=== PATIENT | male | born 1975 | race African-American/Black ===

== ENCOUNTER 2017-02-08 03:45 | Emergency (ER) | payer OTHER ==
[~2017-02-08] VITALS: Ht 172.7 cm; Wt 95.3 kg
[~2017-02-08 03:45] MED LIST: NOHOMEMEDS
[2017-02-08 05:15] VITALS: BP 154/119
[2017-02-08 12:52] LABS: CHLAMYDIA TRACHOMATIS POSITIVE; NEISSERIA GONORRHOEAE NEGATIVE
== END 2017-02-08 05:17 | disposition home or self-care (01) ==
LOC: EXP 03:45 → EME 03:45 → EXP 05:17
DX: N34.2 Other urethritis (principal); F17.200 Nicotine dependence, unspecified, uncomplicated
CPT/HCPCS: 87491; 87591; 99281; 99283; J0696

== ENCOUNTER 2017-12-21 05:11 | Emergency (ER) | payer OTHER ==
[~2017-12-21] VITALS: Ht 175.3 cm; Wt 95.0 kg
[2017-12-21 06:04] LABS: SOURCE URINE
[2017-12-21 08:07] VITALS: BP 135/85
[2017-12-21 10:27] LABS: TREPONEMA ANTIBODY POSITIVE (NEGATIVE)
[2017-12-22 12:16] LABS: CHLAMYDIA TRACHOMATIS NEGATIVE; NEISSERIA GONORRHOEAE NEGATIVE
[2017-12-23 13:49] LABS: TREPONEMA PALLIDUM PART AGGL Reactive (Nonreactive)
[2017-12-23 17:58] LABS: RPR SCREEN Reactive (Nonreactive)
[2017-12-23 18:10] LABS: RPR TITER Reactive 1:4 (())
== END 2017-12-21 08:08 | disposition home or self-care (01) ==
LOC: EME 05:11
DX: A51.0 Primary genital syphilis (principal); F17.200 Nicotine dependence, unspecified, uncomplicated
CPT/HCPCS: 86592 90; 86593 90; 86780; 86780 90; 87491; 87591; 99281; 99284; J0561